=== PATIENT | male | born 1990 | race Caucasian/White ===

== ENCOUNTER 2016-06-03 13:44 | Emergency (ER) | payer OTHER ==
[2016-06-03 14:25] LABS: URINE BILIRUBIN NEGATIVE (NEGATIVE); URINE BLOOD NEGATIVE (NEGATIVE); URINE GLUCOSE (UA) NEGATIVE (NEGATIVE); URINE LEUKOCYTE ESTERASE TRACE (NEGATIVE); URINE NITRITE NEGATIVE (NEGATIVE); URINE PROTEIN NEGATIVE (NEGATIVE); URINE UROBILINOGEN NORMAL (0-1 mg/dl)
[2016-06-03 14:29] LABS: URINE APPEARANCE SL CLOUDY; URINE COLOR YELLOW
[2016-06-03 14:58] LABS: URINE AMORPHOUS SEDIMENT 2+; URINE BACTERIA TRACE; URINE EPITHELIAL CELLS FEW /hpf; URINE RBC RARE /hpf; URINE WBC RARE /hpf
[2016-06-03 15:03] LABS: ABSOLUTE NEUTROPHIL COUNT 7.2 K/mm3 (1.8-7.7); BASO # 0.1 K/mm3 (0.0-0.2); BASO % 0.6 % (0.2-1.0); EOS # 0.1 (0.0-0.5); EOS % 1.2 % (0.9-2.9); HEMATOCRIT 45.9 % (32.0-52.0); HEMOGLOBIN 16.2 gm/l (14.0-18.0); IMM NEUT% 0.4 % (0-1); LYMPH # 2.5 (1.0-4.8); LYMPH % 23.5 % (15-45); MEAN CELL VOLUME 94.3 fl (80.0-94.0); MEAN CORPUSCULAR HEMOGLOBIN 33.3 pg (27.0-31.0); MEAN CORPUSCULAR HGB CONC 35.3 g/dl (33.0-37.0); MEAN PLATELET VOLUME 8.6 fl (7.4-10.4); MONO # 0.8 (0.0-0.8); NEUT % 67.3 % (43-75); PLATELET COUNT 322 K/mm3 (130-400)
--- NOTE | 2016-06-03 15:11 | RAD ---
LUMBAR SPINE ROUTINE 2 3 VWS HISTORY: Back spasms. COMPARISONS: None. FINDINGS: AP and lateral views of the lumbar spine were performed demonstrating 5 lumbar-type vertebral bodies. The vertebral body height and alignment is intact. The disc spaces are relatively well-maintained. The posterior elements are intact. The sacrum and sacroiliac joints are unremarkable. IMPRESSION: 1. Negative views of the lumbar spine.
[2016-06-03] MEDS ORDERED: ACETAMINOPHEN 500 MG TABLET ONE (15:13)
[2016-06-03] MEDS ORDERED: METHOCARBAMOL 750 MG TABLET ONE (15:13)
[2016-06-03] MEDS ORDERED: OXYCODONE HCL 5 MG TABLET ONE (15:14)
[2016-06-03] MEDS ORDERED: LIDOCAINE 5% PATCH ONE (15:50)
== END 2016-06-03 16:28 | disposition home or self-care (01) ==
LOC: ED 13:44
DX: M54.5 Low back pain (principal); M62.830 Muscle spasm of back; F17.210 Nicotine dependence, cigarettes, uncomplicated
CPT/HCPCS: 85025; 85651; 81001; 72100; 99284; 51798; 99283; A9270 ×4

== ENCOUNTER 2016-07-10 08:36 | Emergency (ER) | payer OTHER ==
[2016-07-10] MEDS ORDERED: CYCLOBENZAPRINE HCL 10 MG TABLET ONE (09:37)
[2016-07-10] MEDS ORDERED: ACETAMINOPHEN 500 MG TABLET ONE (09:37)
[2016-07-10] MEDS ORDERED: PREDNISONE 20 MG TABLET ONE (09:38)
== END 2016-07-10 09:58 | disposition home or self-care (01) ==
LOC: ED 08:36
DX: M54.5 Low back pain (principal); F17.210 Nicotine dependence, cigarettes, uncomplicated
CPT/HCPCS: 99283 ×2; J7512; A9270